=== PATIENT | female | born 1995 | race Caucasian/White ===

== ENCOUNTER 2017-05-07 13:44 | Emergency (ER) | payer MEDICAID ==
[~2017-05-07] VITALS: Ht 160 cm; Wt 77.1 kg
[2017-05-07 14:28] VITALS: BP 128/60
--- NOTE | 2017-05-07 14:38 | NUR ---
Patient to bed 08.
--- NOTE | 2017-05-07 14:55 | NUR ---
PT C/O PELVIC CRAMPS, DYSURIA, POLYURIA 2-3DFAYS. [facility] FOR SYMPTOMS, STS NO IMPROVEMENT. DENIES N/V/D; SKIN IS PINK/WARM/DRY; AAOX4 WITH EVEN AND STEADY GAIT; LUNGS CLEAR BL; HR EVEN AND REGULAR; PT DENIES ANY FEVER, CP, SOB, OR COUGH AT THIS TIME; PATIENT STATES PAIN OF 6/10 AT THIS TIME; VSS; PATIENT POSITIONED FOR COMFORT; HOB ELEVATED; BEDRAILS UP X2; BED DOWN. ER MD MADE AWARE OF PT STATUS.
[2017-05-07] MEDS ORDERED: IBUPROFEN 600 MG TAB PO ONE (15:00)
[2017-05-07 15:44] VITALS: BP 120/60
--- NOTE | 2017-05-07 15:45 | NUR ---
Patient discharged with v/s stable. Written and verbal after care instructions given and explained. Patient alert, oriented and verbalized understanding of instructions. Ambulatory with steady gait. All questions addressed prior to discharge. ID band removed. Patient advised to follow up with PMD. Rx of MACROBID & MOTRIN given. Patient educated on indication of medication including possible reaction and side effects. Opportunity to ask questions provided and answered.
== END 2017-05-07 15:45 | disposition home or self-care (01) ==
LOC: MED 14:01
DX: N39.0 Urinary tract infection, site not specified (principal)
CPT/HCPCS: 81002; 81025; 99283

== ENCOUNTER 2018-10-10 21:33 | Emergency (ER) | payer MEDICAID ==
[~2018-10-10] VITALS: Ht 160 cm; Wt 72.6 kg
[2018-10-10 21:37] VITALS: BP 135/90
[2018-10-10] MEDS ORDERED: KETOROLAC 60 MG/2 ML VIAL IM ONE (22:10)
[2018-10-10] MEDS ORDERED: PENICILLIN G BENZATHINE L-A 1.2 MU/2 ML SYR IM ONE ×2 (22:10→22:25)
[2018-10-10 22:45] VITALS: BP 135/90
== END 2018-10-10 22:45 | disposition home or self-care (01) ==
LOC: MED 21:33
DX: J02.0 Streptococcal pharyngitis (principal); F17.200 Nicotine dependence, unspecified, uncomplicated
CPT/HCPCS: 96372; 99284; J0561; J1885

== ENCOUNTER 2019-04-27 18:05 | Emergency (ER) | payer MEDICAID ==
[~2019-04-27] VITALS: Ht 160 cm; Wt 70.3 kg
[2019-04-27 18:10] VITALS: BP 129/82
[2019-04-27] MEDS ORDERED: ACETAMINOPHEN 325 MG TAB PO ONE (18:20)
[2019-04-27] MEDS ORDERED: LIDOCAINE OINTMENT 5% 35 GM TUBE TP ONE (18:20)
[2019-04-27] MEDS ORDERED: LIDOCAINE 1% 500 MG/50 ML VIAL INJ SCH (18:20)
[2019-04-27] MEDS ORDERED: LIDOCAINE JELLY 2% 30 ML TUBE TP ONE (18:37)
[2019-04-27] MEDS ORDERED: LIDOCAINE MPF 1% - 5 mL VIAL 5 ML ONE (18:37)
--- NOTE | 2019-04-27 18:40 | NUR ---
PATIENT PRESENTS TO ED WITH C/O LACERATION TO LT FOOT. PATIENT STATES PAIN OF 10/10. NO ACTIVE BLEEDING AT THIS TIME. UNABLE TO RECALL TATANUS VACCINE.
--- NOTE | 2019-04-27 19:20 | NUR ---
PTS WOUND WAS COVERED WITH A NON ADHERENT GAUZE PAD THEN ROLL GAUZE WAS PLACED TO HOLD PTS NON ADHERENT GAUZE
[2019-04-27 19:30] VITALS: BP 129/82
--- NOTE | 2019-04-27 19:30 | NUR ---
Patient discharged with v/s stable. Written and verbal after care instructions given and explained. Patient alert, oriented and verbalized understanding of instructions. Ambulatory with steady gait. All questions addressed prior to discharge. ID band removed. Patient advised to follow up with PMD. Rx of KEFLEX, IBUPROFEN, BACITRACIN OINTMENT given. dressing clean, dry and intact. Patient educated on indication of medication including possible reaction and side effects. Opportunity to ask questions provided and answered.
== END 2019-04-27 19:30 | disposition home or self-care (01) ==
LOC: MED 18:05
DX: S91.312A Laceration without foreign body, left foot, initial encounter (principal); W22.8XXA Striking against or struck by other objects, initial encounter; Y93.01 Activity, walking, marching and hiking; Y92.89 Other specified places as the place of occurrence of the external cause; Y99.8 Other external cause status
CPT/HCPCS: 12002; 81002; 81025; 90471; 90715; 99283; J2001

== ENCOUNTER 2019-04-29 14:54 | Emergency (ER) | payer MEDICAID ==
[~2019-04-29] VITALS: Ht 160 cm; Wt 76.4 kg
[2019-04-29 15:13] VITALS: BP 108/60
--- NOTE | 2019-04-29 15:18 | NUR ---
Patient ambulated to bed 4 with family. RN evaluating patient at bedside.
--- NOTE | 2019-04-29 15:23 | NUR ---
DR DELCID AT BEDSIDE
[2019-04-29] MEDS ORDERED: BACITRACIN OINT 500 UNITS/GM PKT TP ONE ×2 (15:30→15:38)
--- NOTE | 2019-04-29 15:31 | NUR ---
23 Y FEMALE BIB FAMILY. PT STATES SHE NEEDS A CHECK UP ON THREE SUTURES THAT WERE PUT IN THURSDAY ON DORSAL SURFACE OF LT FOOT. PT WAS TOLD TO RETURN FOR A WOUND CHECK TODAY, AND THEN HAVE THEM REMOVED 10 DAYS AFTER THEY WERE PLACED. SUTURES APPEAR TO BE HEALING PROPERLY. PINK APPEARANCE. PT DENIES DISCHARGE. VSS AT THIS TIME. APIN 04/01. AA0X4. BED IS DOWN, LOCKED, BED RIALX 1, ERMD TO SEE PT. MEDHX:DENIES RX:DENIES
--- NOTE | 2019-04-29 15:40 | NUR ---
BACITRACIN GIVEN TO EMT ADAKU FOR WOUND CARE.
--- NOTE | 2019-04-29 15:55 | NUR ---
Patient discharged with v/s stable. Written and verbal after care instructions given and explained. Patient verbalized understanding. Ambulatory with steady gait. All questions addressed prior to discharge. Advised to follow up with PMD.
[2019-04-29 15:58] VITALS: BP 108/60
== END 2019-04-29 15:55 | disposition home or self-care (01) ==
LOC: MED 14:54
DX: S91.312D Laceration without foreign body, left foot, subsequent encounter (principal); X58.XXXD Exposure to other specified factors, subsequent encounter
CPT/HCPCS: 99282

== ENCOUNTER 2019-05-07 12:09 | Emergency (ER) | payer MEDICAID ==
[~2019-05-07] VITALS: Ht 160 cm; Wt 72.7 kg
[2019-05-07 12:17] VITALS: BP 138/70
--- NOTE | 2019-05-07 12:22 | NUR ---
Patient ambulated to bed 3 with family. RN evaluating patient at bedside.
--- NOTE | 2019-05-07 12:29 | NUR ---
Dr. Marquez evaluating patient at bedside.
--- NOTE | 2019-05-07 12:29 | NUR ---
BIB SELF FOR SUTURE REMOVAL AT LEFT FOOT 3 STITCHES. MED HX: DENIES . DENIES N/V/D; SKIN IS PINK/WARM/DRY; AAOX4 WITH EVEN AND STEADY GAIT; LUNGS CLEAR BL; HR EVEN AND REGULAR; PT DENIES ANY FEVER, CP, SOB, OR COUGH AT THIS TIME; PATIENT STATES PAIN OF 0/10 AT THIS TIME; VSS; PATIENT POSITIONED FOR COMFORT; HOB ELEVATED; BEDRAILS UP X2; BED DOWN. ER MD MADE AWARE OF PT STATUS.
[2019-05-07 13:00] VITALS: BP 128/69
--- NOTE | 2019-05-07 13:00 | NUR ---
Patient discharged with v/s stable. Written and verbal after care instructions given and explained. Patient alert, oriented and verbalized understanding of instructions. Ambulatory with steady gait. All questions addressed prior to discharge. ID band removed. Patient advised to follow up with PMD. Rx of IBU given. Patient educated on indication of medication including possible reaction and side effects. Opportunity to ask questions provided and answered.
[2019-05-07] MEDS ORDERED: BACITRACIN OINT 500 UNITS/GM PKT TP ONE (13:07)
== END 2019-05-07 13:00 | disposition home or self-care (01) ==
LOC: MED 12:09
DX: S91.312D Laceration without foreign body, left foot, subsequent encounter (principal); X58.XXXD Exposure to other specified factors, subsequent encounter
CPT/HCPCS: 99282

== ENCOUNTER 2019-07-01 05:13 | Emergency (ER) | payer MEDICAID ==
[~2019-07-01] VITALS: Ht 160 cm; Wt 68.0 kg
[2019-07-01 05:35] VITALS: BP 110/74
--- NOTE | 2019-07-01 05:35 | NUR ---
PT AMBULATED TO BED 3
--- NOTE | 2019-07-01 05:40 | NUR ---
CAME IN WITH C/O PAINFUL URINATION, FREQUENCY, STARTED AN HOUR AGO.
--- NOTE | 2019-07-01 05:50 | NUR ---
SEEN AND EXAMINED BY BRICE WITH ORDERS AND CARRIED OUT
[2019-07-01] MEDS ORDERED: CIPROFLOXACIN 250 MG TAB PO ONE (05:55)
--- NOTE | 2019-07-01 05:55 | NUR ---
ALLRESULTS BACK AND NOTED BY ERMD AND FOR D/C
[2019-07-01 06:16] VITALS: BP 118/74
--- NOTE | 2019-07-01 06:16 | NUR ---
Patient discharged with v/s stable. Written and verbal after care instructions given and explained. Patient alert, oriented and verbalized understanding of instructions. Ambulatory with steady gait. All questions addressed prior to discharge. ID band removed. Patient advised to follow up with PMD. Rx of CIPRO 250MG given. Patient educated on indication of medication including possible reaction and side effects. Opportunity to ask questions provided and answered.
== END 2019-07-01 06:16 | disposition home or self-care (01) ==
LOC: MED 05:13
DX: N39.0 Urinary tract infection, site not specified (principal)
CPT/HCPCS: 81002; 81025; 99283

== ENCOUNTER 2019-11-12 19:35 | Emergency (ER) | payer MEDICAID ==
[~2019-11-12] VITALS: Ht 160 cm; Wt 65.3 kg
[2019-11-12 19:56] VITALS: BP 133/98
--- NOTE | 2019-11-12 20:02 | NUR ---
PT AMBULATED TO THE LOBBY TO A/W BED.
--- NOTE | 2019-11-12 23:25 | NUR ---
CALLED FOR PT IN ER LOBBY AND OUTSIDE OF LOBBY, NO ANSWER. PT LWBS AT [phone]
--- NOTE | 2019-11-12 23:34 | NUR ---
CALLED FOR PT IN ER LOBBY AND OUTSIDE OF LOBBY FOR SECOND TIME, NO ANSWER. PT LWBS AT [phone]
--- NOTE | 2019-11-12 23:40 | NUR ---
CALLED FOR PT IN ER LOBBY AND OUTSIDE OF LOBBY FOR THIRD TIME, NO ANSWER. PT LWBS AT [phone]
== END 2019-11-12 23:25 | disposition left against medical advice (07) ==
LOC: MED 19:35
DX: R50.9 Fever, unspecified (principal); R05 Cough; Z53.21 Procedure and treatment not carried out due to patient leaving prior to being seen by health care provider

== ENCOUNTER 2022-03-21 19:43 | Emergency (ER) | payer MEDICAID ==
[~2022-03-21] VITALS: Ht 160 cm; Wt 93.0 kg
[2022-03-21 19:45] VITALS: BP 130/77
--- NOTE | 2022-03-21 19:55 | NUR ---
AMBULATED TO BED 7., THEN AMBULATED TO BR FOR UA
[2022-03-21] MEDS ORDERED: KETOROLAC 60 MG/2 ML VIAL IM ONE (20:10)
[2022-03-21] MEDS ORDERED: CIPR500T4 PO ×2 (20:35→22:18)
[2022-03-21] MEDS ORDERED: IBUP-2213 PO ×2 (20:35→22:18)
[2022-03-21] MEDS ORDERED: PHEN-1877 PO ×2 (20:35→22:18)
[2022-03-21 20:55] VITALS: BP 130/77
--- NOTE | 2022-03-21 20:55 | NUR ---
Patient discharged with v/s stable. Written and verbal after care instructions given and explained. Patient alert, oriented and verbalized understanding of instructions. Ambulatory with steady gait. All questions addressed prior to discharge. ID band removed. Patient advised to follow up with PMD. Rx of CIPRO IBUPROFEN PYRIDIUM given. Patient educated on indication of medication including possible reaction and side effects. Opportunity to ask questions provided and answered.
--- NOTE | 2022-03-21 22:10 | NUR ---
The patient's care was reviewed and supervised by Taylor Smart RN. Chart checked.
== END 2022-03-21 20:55 | disposition home or self-care (01) ==
LOC: MED 19:43
DX: N39.0 Urinary tract infection, site not specified (principal); Z98.890 Other specified postprocedural states
CPT/HCPCS: 81002; 81025; 96372; 99283; J1885

== ENCOUNTER 2022-11-12 22:46 | Emergency (ER) | payer MEDICAID ==
[~2022-11-12] VITALS: Ht 160 cm; Wt 113.4 kg
[~2022-11-12 22:46] MED LIST: CIPR500T4 PO; IBUP-2213 PO; PHEN-1877 PO
[2022-11-12 23:00] VITALS: BP 140/89
--- NOTE | 2022-11-12 23:04 | NUR ---
PT TO BED 11 VIA W/C
--- NOTE | 2022-11-12 23:10 | NUR ---
Patient BIB by family. C/O right foot pain x 1 day. Patient reported, fell, right foot pain, pain rate 10/10, slightly swelling, unable to bare weight , due to pain.
--- NOTE | 2022-11-12 23:12 | NUR ---
Dr. Prather examining patient.
[2022-11-12] MEDS ORDERED: KETOROLAC 30 MG/ML VIAL IM ONE (23:20)
[2022-11-12] MEDS ORDERED: KETOROLAC 30 MG/ML VIAL ONE (23:22)
--- NOTE | 2022-11-12 23:38 | NUR ---
X-Ray at bedside.
[2022-11-13] MEDS ORDERED: NAPR-54 PO (00:06)
[2022-11-13] MEDS ORDERED: ACET-10509 PO (00:06)
--- NOTE | 2022-11-13 00:13 | NUR ---
Dr. Prather explained results and treatment plans.
[2022-11-13 00:32] VITALS: BP 132/89
--- NOTE | 2022-11-13 00:32 | NUR ---
Patient discharged with v/s stable. Written and verbal after care instructions given and explained. Patient alert, oriented and verbalized understanding of instructions. Ambulatory with steady gait. All questions addressed prior to discharge. ID band removed. Patient advised to follow up with PMD. Rx of Tylenol and Naproxen given. Patient educated on indication of medication including possible reaction and side effects. Opportunity to ask questions provided and answered.
== END 2022-11-13 00:32 | disposition home or self-care (01) ==
LOC: MED 22:46
DX: S92.351A Displaced fracture of fifth metatarsal bone, right foot, initial encounter for closed fracture (principal); W18.30XA Fall on same level, unspecified, initial encounter; Y93.89 Activity, other specified; Y92.89 Other specified places as the place of occurrence of the external cause; Y99.8 Other external cause status
CPT/HCPCS: 73610; 73630; 96372; 99284; J1885

== ENCOUNTER 2023-07-31 18:25 | Emergency (ER) | payer MEDICAID ==
[~2023-07-31] VITALS: Ht 160 cm; Wt 100.7 kg
[~2023-07-31 18:25] MED LIST changes: +ACET-10509 PO; +AMOX1TAB8 PO; +NAPR-54 PO
[2023-07-31 19:11] VITALS: BP 142/89; PULSE 102; RESP 18; TEMP 98.9; O2SAT 96
[2023-07-31] MEDS ORDERED: AMOX1TAB8 PO (20:13)
[2023-07-31] MEDS ORDERED: BENZ-300 PO (20:13)
[2023-07-31] MEDS ORDERED: PROM118S5 PO (20:13)
[2023-07-31] MEDS ORDERED: DEXAMETHASONE 10 MG/ML VIAL IM ONE (20:20)
== END 2023-07-31 21:00 | disposition home or self-care (01) ==
LOC: MED 18:25
DX: J02.9 Acute pharyngitis, unspecified (principal); J06.9 Acute upper respiratory infection, unspecified; Z79.899 Other long term (current) drug therapy; Z20.822 Contact with and (suspected) exposure to COVID-19
CPT/HCPCS: 99283

== ENCOUNTER 2024-07-01 00:40 | Emergency (ER) | payer MEDICAID ==
[~2024-07-01] VITALS: Ht 160 cm; Wt 109.8 kg
[~2024-07-01 00:40] MED LIST changes: +BENZ-300 PO; +NAPR-337 PO; -NAPR-54 PO; +PROM118S5 PO
[2024-07-01 00:48] VITALS: BP 113/68; PULSE 75; RESP 14; TEMP 97.1; O2SAT 99
[2024-07-01 02:14] VITALS: BP 113/68; PULSE 75; RESP 14; TEMP 97.1; O2SAT 99
== END 2024-07-01 02:14 | disposition home or self-care (01) ==
LOC: MED 00:40
DX: O9A.213 Injury, poisoning and certain other consequences of external causes complicating pregnancy, third trimester (principal); S93.402A Sprain of unspecified ligament of left ankle, initial encounter; S93.401A Sprain of unspecified ligament of right ankle, initial encounter; Z3A.30 30 weeks gestation of pregnancy; Z79.899 Other long term (current) drug therapy; W18.39XA Other fall on same level, initial encounter; Y92.89 Other specified places as the place of occurrence of the external cause; Y93.89 Activity, other specified; Y99.8 Other external cause status
CPT/HCPCS: 73600; 73610; 99283; Q0092